=== PATIENT | male | born 1950 ===

== ENCOUNTER 2018-04-26 05:43 | Day surgery (SDC) | payer MEDICARE ==
[~2018-04-26 05:43] MED LIST: Buffered Lidocaine 1% SYRIN* 1 ML/SYRINGE INTRADERM ONE
[2018-04-26] MEDS ORDERED: Dexamethasone IV* 4 MG/ML 1 ML (4 MG) IV SLOW PU ONE (06:00)
[2018-04-26] MEDS ORDERED: Famotidine IV* 10 MG/ML 2 ML (20 mg) IV ONE (06:00)
[2018-04-26] MEDS ORDERED: Lactated Ringers 1000 ML Bag* 1,000 ML IV SCH (06:00)
[2018-04-26] MEDS ORDERED: Dexamethasone IV* 4 MG/ML 1 ML (4 MG) ONE (06:34)
[2018-04-26] MEDS ORDERED: Famotidine IV* 10 MG/ML 2 ML (20 mg) ONE (06:34)
[2018-04-26] MEDS ORDERED: ceFAZolin 2 GM in NS PREMIX(*) 2 GM/100 ML BAG IVPB ONE (06:34)
[2018-04-26] MEDS ORDERED: Buffered Lidocaine 1% SYRIN* 1 ML/SYRINGE INTRADERM ONE (06:34)
[2018-04-26] MEDS ORDERED: Bupivacaine 0.5% W/EPI SDV* 30 ML VIAL ONE (06:51)
[2018-04-26] MEDS ORDERED: EPINEPHRINE 1 MG/ML 1 ML VIAL ONE (06:51)
[2018-04-26] MEDS ORDERED: Lidocaine 2% PF * 5 ML VIAL ONE (07:05)
[2018-04-26] MEDS ORDERED: Midazolam* 1 MG/ML 2 ML VIAL (2 MG) ONE (07:05)
[2018-04-26] MEDS ORDERED: Rocuronium* 10 MG/ML VIAL ONE (07:05)
[2018-04-26] MEDS ORDERED: Propofol* 10 MG/ML 20 ML BTL ONE (07:05)
[2018-04-26] MEDS ORDERED: fentaNYL* 50 MCG/ML 2 ML VIAL (100 MCG VIAL) ONE (07:05)
[2018-04-26] MEDS ORDERED: ROPIVACAINE 5 MG/ML 30 ML BTL (0.5%) ONE (07:11)
[2018-04-26] MEDS ORDERED: EPHEDrine (Pressors)* 50 MG/ML VIAL ONE (08:17)
[2018-04-26] MEDS ORDERED: Metoprolol Tartrate IV* 1 MG/ML 5 ML VIAL ONE (09:27)
[2018-04-26] MEDS ORDERED: Ondansetron INJ* 2 MG/ML VIAL ONE (11:29)
[2018-04-26] MEDS ORDERED: DiMENhydriNATE IV* 50 MG/ML VIAL IV PUSH PRN (12:17)
[2018-04-26] MEDS ORDERED: Ketorolac INJ* 30 MG/ML 1 ML VIAL IV PRN (12:17)
[2018-04-26] MEDS ORDERED: Naloxone* 0.4 MG/ML 1 ML VIAL IV PRN (12:17)
[2018-04-26] MEDS ORDERED: oxyCODONE/Acetamin 5/325 MG* TAB PO PRN (12:17)
[2018-04-26] MEDS ORDERED: HYDROcodone/ACETAMIN 5-325 MG* 1 TAB PO PRN (12:17)
[2018-04-26] MEDS ORDERED: fentaNYL* 50 MCG/ML 2 ML VIAL (100 MCG VIAL) IV PRN (12:17)
[2018-04-26] MEDS ORDERED: Artificial Tears* 15 ML BTL ONE (13:45)
[2018-04-26] MEDS ORDERED: Artificial Tears* 15 ML BTL RIGHT EYE ONE (14:00)
[2018-04-26 16:00] VITALS: BP 144/92
--- NOTE | 2018-04-28 05:45 | OP ---
OPERATIVE REPORT: DATE OF OPERATION: 04/26/18 DATE OF : 50 SURGEON: Nima Yanes MD. LEAD SECURITY OFFICER: ISIDORO Martinez. A physician diagnostic assistant was required for the length of procedure for assistance with retraction, instru mentation, patient positioning, and closure. ANESTHESIOLOGIST: Dr. Arley Zamudio. ANESTHESIA: General anesthesia, regional interscalene block anesthesia. PRE-OP DIAGNOSES: 1. Left shoulder massive rotator cuff tendon tear, acute on chronic, significant retraction and musc le atrophy, supraspinatus, infraspinatus. 2. Left shoulder AC joint impingement and bursitis and AC joint osteoarthritis. 3. Left shoulder long head biceps tendinosis with a small amount of subluxation. POST-OP DIAGNOSES: 1. Left shoulder massive rotator cuff tendon tear, acute on chronic, significant retraction and musc le atrophy, supraspinatus, infraspinatus. 2. Left shoulder AC joint impingement and bursitis and AC joint osteoarthritis. 3. Left shoulder long head biceps tendinosis with a small amount of subluxation. OPERATIVE PROCEDURE: 1. Left shoulder arthroscopic rotator cuff tendon repair, massive, retracted, supraspinatus, infrasp inatus, with a double row repair using 7 anchors. 2. Modifier 22 for an unusual or complex procedure. I used this because of the long duration of thi s procedure, 201 minutes, the significant degree of complexity given the significant retraction and i mmobility of these tendons that were injured, requiring significant release of tissues superior and i nferior to the rotator cuff tendons as well as an anterior slide release, interval, as well as a very high number of anchors and sutures, 7 anchors and countless stitches along with side-to- side suturi ng between the 2 tendons. 3. Left shoulder arthroscopic subacromial decompression. 4. Left shoulder arthroscopic distal clavicle resection. 5. Left shoulder arthroscopic limited debridement including subacromial bursectomy, release of supra spinatus and infraspinatus tendons, anterior interval slide release for mobilization. ANTIBIOTICS: Ancef 2 g IV. IV FLUIDS: See Anesthesia note. [id number]-JX-[id number] TIME: 201 minutes. ARTHROSCOPY FLUID UTILIZED: 20 bags, each with 3 L, for a total of 60 L. SPECIMEN: None. IMPLANTS: Arthrex 5.5 mm Healix suture anchors x5. Two of these had 3 sutures, 2 of them had 2 stit ches. I also used 3 knotless 5.5 mm Mitek Healix suture anchors. I also used a #2 FiberWire for a si de-to-side stitch. COMPLICATIONS: None. ESTIMATED BLOOD LOSS: Minimal. 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 See my history and physical for details. Since that time, the patient developed significant pain and weakness in the left should er, most markedly loss of external rotation actively. The patient saw me about 6 weeks later and he had significant weakness of supraspinatus and infraspinatus. The patient told me that he had injured his left shoulder twice before, once 10 years ago and once 5 years ago. After each time, the patien t had pain for a significant length of time after the injury, 6 months after the first injury and 1.5 years after the second injury. There was no MRI imaging at that time and I suspect the patient tore his rotator cuff at the time of one or both of those injuries. By the time of his most recent clinic visit for the history and physical, the patient's pain has most ly abated, but he had significant weakness of that left shoulder making it essentially non-functional for him. The patient had weakness and pain with supraspinatus and infraspinatus stress testing and an external rotation lag to 0 degrees. X-rays showed AC joint narrowing and a curve to the anterior aspect of the acromion on x-ray, as well as some trace elevation of the humeral head. Acromial humeral distance was still within normal limi ts, but the humeral head looked slightly elevated compared to the glenoid. MRI from February 27, 2018 , showed a large rotator cuff tendon tear. Supraspinatus torn medialized to a point just lateral to the glenoid. Infraspinatus retracted to the level of the glenoid. Humeral head elevation. No signi ficant glenohumeral joint osteoarthritic changes. Mild atrophy of supraspinatus muscle, moderate atr ophy of infraspinatus and teres minor muscles. Atrophy of the infraspinatus might actually be a littl e bit more than moderate. The patient and I discussed the difficult injury several times in clinic. We discussed different priya atment options including nonoperative management, partial versus full rotator cuff repair. We also d iscussed briefly superior capsular repair as well as shoulder arthroplasty, reversed his options. We decided on an attempt at rotator cuff repair. I told the patient that it was not guaranteed that I could repair the rotator cuff and it could certainly retear postoperatively, especially given this am ount of retraction and fatty atrophy. We both thought it was worth an attempt. We discussed treatme nt of long head biceps tendon and the patient did not want to treat it, either released or tenodesed, even if there was significant pathology associated with it. Preoperative imaging showed some tendin osis and some trace subluxation. I discussed risks and potential complications of the procedure. DESCRIPTION OF PROCEDURE: In preoperative holding, the patient signed a written consent. Operative extremity marked in preoperative holding. The patient had an interscalene regional nerve block perfo rmed by Dr. Zamudio. The patient was taken back to the operating room and placed supine on the operatin g room table. Sedated and intubated. The patient was transferred into the lateral decubitus position. Axillary roll placed. Bony promine nces padded. Beanbag hardened. Left shoulder placed in longitudinal traction with the appropriate a mount of forward flexion and abduction. The left shoulder was prepped and draped. Surgical time-out was performed. A spinal needle was placed into the glenohumeral joint from posterior. 30 cc of normal saline was in fused. A posterior glenohumeral joint portal was established using standard technique. I started my diagnostic arthroscopy. Some grade 1 articular cartilage wear on the humeral head was noted. No more significant articular c artilage damage appreciated. No focal articular cartilage defects. No loose body evaluated or seen. Biceps tendon was intact. No high- grade tear in it. No significant subluxation noted. Subscapul soni tendon was intact, viewed in a variety of positions. Clearly, there was a large rotator cuff tear present, full thickness, retracted. However, the anterio r most aspect of the supraspinatus was still intact. I moved my arthroscope to the subacromial space. I established a cannula anteriorly. I then establi shed lateral and posterolateral portals under direct visualization. I brought in an arthroscopic sha denver and debrided inflamed bursa in all the gutters. I brought in a rotator cuff grasper to test the mobility of the rotator cuff. I knew I was in for some work. The patient had a retracted supraspina tus and infraspinatus tear. These were both retracted to just medial to the glenoid as arthroscopic photographs demonstrated. Supraspinatus appeared to be of better quality, looking more white and mor e solorio. Infraspinatus looked more infused with fat. I used a rotator cuff grasper at first and I w as able to lateralize it. I was able to bring it just to bone under much tension prior to doing any releases. This made me think that this was likely repairable. I next underwent significant amount of freeing up of the tendon tissue. I debrided inferior to the t endons with switching stick, arthroscopic shaver, and VAPR. I debrided superior to the tendons with arthroscopic shaver and burner. I performed an anterior interval slide, releasing coracohumeral ligament and releasing rotator cuff i nterval tissue up to the base of the coracoid. I released some superficial tissue at the junction of the supraspinatus and infraspinatus muscles. I went far enough medial so that we irritated the nerve branch to the infraspinatus from the suprascap ular nerve. We did not come close to that nerve itself though. I decided not to perform a full post erior interval release because I thought that the supraspinatus had better excursion than the infrasp inatus and that the release might more weaken the strength of the repair than it would improve latera lization of the supraspinatus. It should be stated that part of the releases all around the 2 retracted tendons were performed with traction stitches, put into place into each tendon, with FiberWire #2 suture placed with an Arthrex S corpion suture passer. I reclosed the rotator cuff grasper and this showed me that the tendons could be brought to bone. I was confident that I could do a repair, although I clearly still had my work set out for me. The pat ient had certainly a very large bare area on that humeral head and retracted tendons. I next performed some bony work. I debrided the rotator cuff footprint with a VAPR. I next prepared it for best healing surface using arthroscopic amarilis. I medialized the footprint several millimeters , perhaps 3 or 4 mm, to decrease the tension on my repair and improve the success rate of my repair. I next went about performing my subacromial decompression. I wanted to be careful not to take down t he coracoacromial ligament. I also did not want to remove too much bone anteriorly as the patient wo uld be at risk of anterior humeral escape if he re-tears his tendon in the future. Therefore, I debr ided with the arthroscopic amarilis, mostly lateral acromion as well as some anterolateral acromion and c learly the most prominent hook aspect of the acromion directly anteriorly. I next went about performing the rotator cuff repair. I started by placing the posterior most anchor, medial row. I placed 2 horizontal mattress stitches in the infraspinatus. I placed these sutures and tied them as I went to make sure that I was getting the correct tension on the cuff. I next placed another medial row anchor, slightly more anterior, f or the infraspinatus. I placed 2 horizontal mattress stitches into the infraspinatus tendon. I left the third suture unused for now. These first 2 anchors and 4 stitches brought the infraspinatus ten don down nicely to bone. There was a cuff of tissue lateral to the anchors. As I moved the humeral head, the cuff was not under undue tension. I next moved to the supraspinatus. I placed 2 anchors in the medial row. The anterior most anchor h ad 2 pairs of sutures and the more posterior of the two had 3. I used the ArthPlink Search Scorpion suture passer to place horizontal mattress stitches. I used a combin ation of tie as you go and placed multiple sutures before tying, as appropriate. I placed 2 horizont al mattress stitches with the anterior most of the two and 3 horizontal mattress stitches with the mo re posterior. The tendons were brought to bone nicely. I was happy with my repair so far. At the junction of the 2 tendons, I wanted to improve even more, the quality of the fixation. Therefore, I decided on an ad ditional anchor, not quite medial row, but slightly more lateral. I took 2 sutures from the more pos terior of the supraspinatus anchors, from the most posterior of its 3 stitches, and 1 suture limb fro m the anterior most of the stitches in the more anterior of the infraspinatus anchors. I placed thes e in a knotless anchor, 5.5 mm Mitek Healix. This nicely brought the corners of each of the tendons down, apposed to bone, and I was very happy with this additional fixation. I next took an unused pair of sutures from the more anterior of the 2 infraspinatus anchors. I used a retrograde suture passer to place a simple stitch, [id number] between the supraspinatus and infra spinatus tendons and tied that. This brought the 2 limbs together excellently. I had cut many suture ends as I went, but then I used sutures from the tied medial row and brought th jolanta suture limbs down to 2 lateral row anchors, 1 anterior and 1 posterior. Each had 3 suture limbs in them. I used knotless 5.5 mm suture anchors to get me a total of 7 suture anchors. I next placed a purely [id number] stitch with a retrograde suture passer between the 2 limbs of the repair, more medially. I liked my repair. It was stable to rotation of the shoulder. The tendons did not seem overly tensi oned with a good healing surface of tendon. I next performed a distal clavicle resection, resecting 8 mm of the distal end of the clavicle with a n arthroscopic amarilis. I removed instruments and fluid from subacromial space. We next closed skin incisions of which there were 13, a testament to the complexity of this procedure involving many anchors and approaches. The se 13 skin incisions were closed with [id number] and 12 stitches using nylon 3-0 suture. Xerofo rm, 4 x 4s, ABDs, foam tape. Sling and abduction pillow. The patient was awakened, extubated, and b rought to the PACU. DISPOSITION: The patient was given Percocet as needed for pain control. He was given a 3-day course of Keflex, oral antibiotics for infection prophylaxis. The patient is to follow up with me in 10 to 14 days postoperatively. The patient was given wound care instructions. The patient is not to star t physical therapy. I think I will hold off on physical therapy for 6 weeks postoperatively given th e patient's age of 67 and the large and retracted nature of his tear. [id number]/[facility] #: [id number]
== END 2018-04-26 16:02 | disposition home or self-care (01) ==
LOC: OR 05:43
PROVIDERS: ATTEND Orthopaedic Surgery
DX: S46.012A Strain of muscle(s) and tendon(s) of the rotator cuff of left shoulder, initial encounter (principal); M75.42 Impingement syndrome of left shoulder; M75.52 Bursitis of left shoulder; M19.012 Primary osteoarthritis, left shoulder; M75.22 Bicipital tendinitis, left shoulder; X50.0XXA Overexertion from strenuous movement or load, initial encounter; Y93.89 Activity, other specified; Y92.9 Unspecified place or not applicable; I10 Essential (primary) hypertension; E78.5 Hyperlipidemia, unspecified; I45.10 Unspecified right bundle-branch block; K21.9 Gastro-esophageal reflux disease without esophagitis; G89.18 Other acute postprocedural pain
CPT/HCPCS: A9270-GY; J0690; J1100; J2250; J2405; J2704; J2795; J3010; J3490